=== PATIENT | female | born 1945 | race African-American/Black ===

== ENCOUNTER 2023-03-12 12:50 | Emergency (ER) | payer OTHER ==
[~2023-03-12] VITALS: Ht 170.2 cm; Wt 55.0 kg
[2023-03-12 13:57] LABS: Basophils # (auto) 0 10 ^3/uL (0-0.2); Basophils % (auto) 0.4 % (0.0-2.0); Eosinophils # (auto) 0 10 ^3/uL (0-0.8); Eosinophils % (auto) 0.1 % (0.0-7.0); Hematocrit 35.2 % (36.0-46.0); Lymphocytes # (auto) 0.4 10 ^3/uL (0.4-5.4); Lymphocytes % (auto) 6.7 % (10.0-50.0); Mean Corpuscular Hemoglobin 31.9 pg (28.0-32.0); Mean Corpuscular Hgb Conc. 34.2 g/dL (32.0-36.0); Mean Corpuscular Volume 93.4 fL (80.0-100.0); Monocytes # (auto) 1.2 10 ^3/uL (0-1.3); Monocytes % (auto) 17.6 % (0.0-12.0); Neutrophils % (auto) 75.2 % (37.0-80.0); Red Blood Cells 3.77 10^6/uL (4.0-5.20); Red Cell Distribution Width 16.6 % (11.8-14.3); White Blood Cell 6.7 10^3/uL (4.4-10.8)
[2023-03-12 14:24] LABS: Alanine Aminotransferase 74 U/L (7-40); Albumin 4.4 g/dL (3.2-4.8); Alkaline Phosphatase 287 U/L (46-116); Anion Gap 9 (5-15); Aspartate Aminotransferase 306 U/L (13-40); BUN/Creatinine Ratio 6.5 (10.0-20.0); Bilirubin, Total 1.2 mg/dL (0.2-1.0); Blood Urea Nitrogen 12 mg/dL (9-23); Calcium 12.1 mg/dL (8.5-10.1); Carbon Dioxide 26 mmol/L (20-30); Chloride 96 mmol/L (98-107); Glucose 131 mg/dL (74-106); Potassium 3.5 mmol/L (3.5-5.1); Sodium 131 mmol/L (136-145); Total Protein 8.3 g/dL (5.7-8.2)
[2023-03-12 14:52] VITALS: PULSE 81; RESP 16; O2SAT 95
[2023-03-12 16:10] LABS: Urine Bacteria NONE SEEN /hpf (None Seen); Urine Blood 1+ /uL (Negative); Urine Clarity Clear (Clear); Urine Color Yellow (Yellow); Urine Protein, UAD 2+ (Negative); Urine Specific Gravity 1.013 (1.001-1.035); Urine Urobilinogen Normal (Negative); Urine WBC 4 /hpf (0 - 5)
[2023-03-12 16:21] LABS: Amphetamine Screen, Urine Neg (NEGATIVE); Barbiturate Scree,Urine Neg (NEGATIVE); Benzodiazephine Screen, Urine Neg (NEGATIVE); Cocaine Screen, Urine Neg (NEGATIVE); Opiate Scree,Urine Neg (NEGATIVE); Phencyclidine Screen, Urine Neg (NEGATIVE)
[2023-03-12 16:22] LABS: Cannabinoid Screen, Urine Neg (NEGATIVE)
[2023-03-12] MEDS ORDERED: SODIUM CHLORIDE 0.9% 1,000 ML IV ONE ×2 (23:30→23:45)
[2023-03-12] MEDS ORDERED: SODIUM CHLORIDE 0.9% 500 ML IV ONE (23:30)
[2023-03-12] MEDS ORDERED: CALCITONIN 200 UNIT/SPRAY NASAL ONE (23:45)
[2023-03-13 07:25] VITALS: PULSE 70; RESP 14; O2SAT 100
[2023-03-13 12:45] VITALS: TEMP 97.3
[2023-03-13] MEDS ORDERED: LORazepam 2MG/ML-1ML VIAL IM ONE (15:15)
[2023-03-13 17:00] VITALS: BP 151/79; PULSE 75; RESP 16; O2SAT 98
== END 2023-03-13 19:20 | disposition home or self-care (01) ==
LOC: EDBD 12:50 → ER 12:50
DX: C78.7 Secondary malignant neoplasm of liver and intrahepatic bile duct (principal); R40.4 Transient alteration of awareness; R53.1 Weakness; I10 Essential (primary) hypertension; K21.9 Gastro-esophageal reflux disease without esophagitis; E78.5 Hyperlipidemia, unspecified; Z85.3 Personal history of malignant neoplasm of breast; Z88.8 Allergy status to other drugs, medicaments and biological substances; Z79.899 Other long term (current) drug therapy
CPT/HCPCS: 36415; 70450; 74176; 80053; 80307; 81001; 82140; 82310; 85025; 93005; 96360; 96361; 96372; 99285; J2060; J7030